=== PATIENT | female | born 1965 | race Caucasian/White ===

== ENCOUNTER 2016-12-19 15:09 | Emergency (ER) | payer MEDICAID ==
[2016-12-19 15:17] VITALS: BP 128/90; PULSE 88; RESP 16; TEMP 98.1; O2SAT 98
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
== END 2016-12-19 15:59 | disposition home or self-care (01) ==
LOC: CED 15:09
DX: S92.514A Nondisplaced fracture of proximal phalanx of right lesser toe(s), initial encounter for closed fracture (principal); W22.8XXA Striking against or struck by other objects, initial encounter; Y92.019 Unspecified place in single-family (private) house as the place of occurrence of the external cause; F17.200 Nicotine dependence, unspecified, uncomplicated
CPT/HCPCS: 73630-PO; G0463-PO

== ENCOUNTER 2017-03-03 11:30 | Emergency (ER) | payer MEDICAID ==
[2017-03-03 11:40] VITALS: TEMP 99
--- NOTE | 2017-03-03 11:58 | EDPHY ---
H & P Time Seen by Provider: 03/03/17 11:46 HPI/ROS: CHIEF COMPLAINT: Right hip pain HISTORY OF PRESENT ILLNESS: 52-year-old female history of chronic bilateral hip pain for several decades, history of DJD, has been told she necessitates bilateral hip arthroplasty, walks with a cane at her baseline, was getting off of the bus, bent over and felt a "pop" in her right inguinal region. She was able to continue ambulating in took the bus to the ER. No shortening or malrotation. No direct trauma or fall. No discoloration. Intact skin. PRIMARY CARE PROVIDER: [facility] PHYSICAL EXAM (Prior to examination, patient consented to physical exam, hands were washed and my usual and customary physical exam procedures followed) 1) GENERAL: Well-developed, well-nourished, alert and oriented. Appears to be in no acute distress. 2) HEAD: Normocephalic 3) HEENT: sclera anicteric 4) LUNGS: Breathing comfortably. 5) SKIN: normal color normal temperature. Distal DP PT pulses present and brisk. Brisk capillary refill. Soft compartments. 6) MUSCULOSKELETAL: no shortening no malrotation. Reproducible pain with range of motion of the femur on acetabulum. Reproducible pain with range of motion. 7) NEUROLOGIC: Full sensation Smoking Status: Current every day smoker Constitutional: Initial Vital Signs Temperature (C) 37.2 C 03/03/17 11:35 Heart Rate 85 03/03/17 11:35 Respiratory Rate 18 03/03/17 11:35 Blood Pressure 109/61 03/03/17 11:35 O2 Sat (%) 97 03/03/17 11:35 O2 Delivery Mode Room Air Allergies/Adverse Reactions: Penicillins Allergy (Intermediate, Verified 03/03/17 11:40) Hives Home Medications: Medication Instructions Recorded Albuterol [Proventil Inhaler HFA 2 puffs IH Q4 03/03/17 (*)] Diclofenac Sodium [Voltaren Gel 1 jose alfredo TP 03/03/17 (*)] Ibuprofen [Motrin (*)] 600 mg PO Q6 #15 tab 03/03/17 Omeprazole [Prilosec 20 mg] 20 mg PO DAILY 03/03/17 MDM/Departure - MDM Imaging Results: Imaging Impressions Hip X-Ray 03/03/17 11:56 Impression: No definite etiology for the patient's pain. Differential Diagnosis: In no particular include but limited to fracture, dislocation, acute exacerbation of chronic pain, DJD - Depart Disposition: Home, Routine, Self-Care Clinical Impression: Acute right hip pain Condition: Good Instructions: Hip Pain (ED) Additional Instructions: Return to the ER immediately if you experience discoloration, have worsening pain, numbness, tingling, or any other symptoms that concern you. If you received x-rays in the emergency department today, be advised, that ligamentous , tendon, muscular, and other non-bony injury cannot be fully ruled out. Try to keep your affected extremity elevated above the level of your chest, and keep cold packs on the affected area, for the next 48 hours. Prescriptions: Ibuprofen [Motrin (*)] 600 mg PO Q6 #15 tab Referrals: Wilian Polk MD [Medical Doctor] - 5-7 days, call for appt.
[2017-03-03 13:06] VITALS: BP 112/70; PULSE 78; RESP 16; O2SAT 94
== END 2017-03-03 13:06 | disposition home or self-care (01) ==
DX: M25.551 Pain in right hip (principal); F17.200 Nicotine dependence, unspecified, uncomplicated

== ENCOUNTER → 2017-03-09 | Outpatient (CLI) | payer MEDICAID | LOC: CIMAGING 13:39 | DX: Z12.31 Encounter for screening mammogram for malignant neoplasm of breast (principal) | CPT/HCPCS: G0202 ==

== ENCOUNTER 2017-04-15 12:12 | Emergency (ER) | payer MEDICAID ==
[2017-04-15 12:33] VITALS: BP 168/94; PULSE 106; RESP 18; TEMP 99; O2SAT 96
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
== END 2017-04-15 12:59 | disposition home or self-care (01) ==
LOC: CED 12:12
DX: J01.01 Acute recurrent maxillary sinusitis (principal); F17.200 Nicotine dependence, unspecified, uncomplicated

== ENCOUNTER → 2017-08-06 | Outpatient (CLI) | payer MEDICAID | LOC: CIMAGING 12:13 | DX: M16.12 Unilateral primary osteoarthritis, left hip (principal) | CPT/HCPCS: 73521-PO ==

== ENCOUNTER 2017-08-13 13:14 | Emergency (ER) | payer MEDICAID ==
[2017-08-13 13:27] VITALS: BP 127/83; PULSE 102; RESP 20; TEMP 98.8; O2SAT 96
--- NOTE | 2017-08-13 13:46 | EDPHY ---
H & P Time Seen by Provider: 08/13/17 13:22 HPI/ROS: This patient complains of sinus pressure in the left frontal sinus of 1 weeks duration 10 days after onset of nasal congestion. She has associated coughing describes a dry cough with some wheezing. She reports that the symptoms are chest feel like an episode of bronchitis she had the past. She reports the intensity of the sinus pain is moderate and worsens when she bends forward or coughs. No other exacerbating factors except for partial relief from ibuprofen. Patient drove herself here by private vehicle for further evaluation. ROS: No high fevers or chills. No other constitutional symptoms. HEENT: No ear pain. Pulmonary: No pleuritic pain or hemoptysis. Cardiovascular: No chest pain. GI: No vomiting 7 point ROS is otherwise negative Smoking Status: Current every day smoker Physical Exam: Physical Exam Vital signs are normal. General: No acute distress HEENT: Nose: Yellow discharge with swollen nasal mucosa and sinus tenderness to percussion of the frontal sinus. Ears: External canals and tympanic membranes are clear with no erythema or abnormal findings bilaterally. Oropharynx: No erythema or exudates. No dysphonia. No drooling or stridor. Eyes: Pupils equal and react to light. Extraocular motions are intact. Neck: Supple with no meningismus. No lymphadenopathy Lungs: Faint expiratory wheeze bilaterally. No rales or rhonchi. Cardiac: Regular rate and rhythm with no murmur gallop or rub Skin: No rash or pallor. Neuro: Alert with no focal deficits noted. Initial differential diagnosis: Sinusitis with bronchitis. Doubt pneumonia. Constitutional: Initial Vital Signs Temperature (C) 37.1 C 08/13/17 13:25 Heart Rate 102 H 08/13/17 13:25 Respiratory Rate 20 08/13/17 13:25 Blood Pressure 127/83 H 08/13/17 13:25 O2 Sat (%) 96 08/13/17 13:25 O2 Delivery Mode Room Air Allergies/Adverse Reactions: Penicillins Allergy (Intermediate, Verified 08/13/17 13:24) Hives Home Medications: Medication Instructions Recorded Albuterol [Proventil Inhaler HFA 2 puffs IH Q4 03/03/17 (*)] Diclofenac Sodium 1% [Voltaren Gel 1 jose alfredo TP 03/03/17 (*)] Ibuprofen [Motrin (*)] 600 mg PO Q6 #15 tab 03/03/17 Omeprazole [Prilosec 20 mg] 20 mg PO DAILY 03/03/17 Fluconazole [Diflucan (*)] 150 mg PO ONCE #1 tab 04/15/17 Fluticasone Nasal [Flonase Nasal 2 sprays NASAL DAILY #1 mdi 04/15/17 [place] (RX)] Albuterol Hfa Anes Only [Proair 2 puffs IH Q4 PRN #1 mdi 08/13/17 Hfa Icu (*)] Azithromycin [Zithromax] 250 mg PO DAILY #6 tab 08/13/17 Benzonatate [Tessalon Pearles (RX)] 100 - 200 mg PO TID PRN #20 cap 08/13/17 Fluticasone Nasal [Flonase Nasal 2 sprays NASAL DAILY #1 mdi 08/13/17 [place]] MDM/Departure - [facility] ED Course/Re-evaluation: I counseled this patient to quit smoking. I counseled regarding sinusitis and bronchitis. Patient appears clinically well with findings to suggest lower respiratory infection or other complicating factors. - Depart Disposition: Home, Routine, Self-Care Clinical Impression: Bronchitis Sinusitis Qualifiers: Sinusitis location: frontal Chronicity: acute Recurrence: non-recurrent Qualified Code(s): J01.10 - Acute frontal sinusitis, unspecified Condition: Good Instructions: How to Stop Smoking (ED), Sinusitis (ED), Acute Bronchitis (ED) Additional Instructions: Diagnoses: 1. Acute sinusitis 2. Bronchitis Plan: Quit smoking Humidifier Albuterol inhaler for cough, wheeze or shortness of breath Flonase steroid nasal spray Zithromax antibiotic Tessalon Perles for cough prevents sleep at night Return for any significant worsening despite the treatment plan Follow up with primary care physician for any ongoing symptoms despite treatment plan Prescriptions: Albuterol Hfa Anes Only [Proair Hfa Icu (*)] 2 puffs IH Q4 PRN #1 mdi PRN Reason: Wheezing Azithromycin [Zithromax] 250 mg PO DAILY #6 tab Benzonatate [Tessalon Pearles (RX)] 100 - 200 mg PO TID PRN #20 cap PRN Reason: cough Fluticasone Nasal [Flonase Nasal [place]] 2 sprays NASAL DAILY #1 mdi Referrals: HADOCK,UNKNOWN [Other] - As per Instructions
== END 2017-08-13 13:55 | disposition home or self-care (01) ==
LOC: CED 13:14
DX: J20.9 Acute bronchitis, unspecified (principal); J01.10 Acute frontal sinusitis, unspecified; F17.200 Nicotine dependence, unspecified, uncomplicated

== ENCOUNTER → 2018-11-09 | Outpatient (CLI) | payer OTHER | LOC: CIMAGING 12:13 | DX: M19.011 Primary osteoarthritis, right shoulder (principal); M16.0 Bilateral primary osteoarthritis of hip; M47.892 Other spondylosis, cervical region | CPT/HCPCS: 72040-PO; 73030-PO; 73521-PO ==

== ENCOUNTER → 2018-12-09 | Outpatient (CLI) | payer OTHER, MEDICAID | LOC: FIMAGING 10:29 | PROVIDERS: ATTEND Orthopaedic Surgery Orthopaedic Surgery of the Spine | DX: M50.31 Other cervical disc degeneration, high cervical region (principal); M53.82 Other specified dorsopathies, cervical region; M71.38 Other bursal cyst, other site ==

== ENCOUNTER → 2018-12-21 | Outpatient (CLI) | payer OTHER | LOC: CIMAGING 13:02 | PROVIDERS: ATTEND Orthopaedic Surgery Orthopaedic Surgery of the Spine | DX: M89.9 Disorder of bone, unspecified (principal); M50.93 Cervical disc disorder, unspecified, cervicothoracic region; M46.92 Unspecified inflammatory spondylopathy, cervical region; M48.03 Spinal stenosis, cervicothoracic region; M50.31 Other cervical disc degeneration, high cervical region; M48.02 Spinal stenosis, cervical region | CPT/HCPCS: 72125-PO ==

== ENCOUNTER 2019-04-13 11:02 | Emergency (ER) | payer OTHER, MEDICAID | END 2019-04-13 12:06 | disposition home or self-care (01) | LOC: CED 11:02 ==